=== PATIENT | female | born 1990 | race Caucasian/White ===

== ENCOUNTER 2017-07-20 11:59 | Observation (INO) | payer OTHER ==
--- NOTE | 2017-07-20 13:31 | SOAPPROG ---
SOAP Progress Note Assessment/Plan: Assessment:27 G1 at 37w5d with spotting last night, resolved today. Reassuring NST. Cervix is not dilated. Some uterine irritability and an occasional contraction. Plan: DC home with labor precautions. FU in office as scheduled in 2 days. Lexi Lambert MD, FACOG 07/20/17 13:28 Subjective: Pt had some bright red bleeding yesterday evening, which stopped, but then this morning had some brown and pink discharge. Also noticed some decreased movement this morning, so called an came in this morning. Since arrival here - has had good movement. Is feeling an occasional contraction. Objective: 37.1 119/68 86 20 O pos blood type gen - pleasant, NAD cv - RRR chest - CTAB abd - gravid, soft, NT sterile speculum - no lesions in vagina, sm amount brown mucous cervix appears long and closed SVE - closed / long/ high and posterior FHR - 130 reactive, Cat 1 toco - occasional contraction, some irritability - Time Spent With Patient Time Spent With Patient: 15min - Pending Discharge Pending Discharge Within 24 Hours: Yes Pending Discharge Within 48 Hours: Yes Pending Discharge Date: 07/21/17 Pending Discharge Time: 11:00 ICD10 Worksheet Patient Problems: Problems Problem Status Onset Vaginal bleeding during , antepartum Acute - ICD10 Problem Qualifiers (1) Vaginal bleeding during , antepartum
== END 2017-07-20 13:45 | disposition home or self-care (01) ==
LOC: FLD 11:59
PROVIDERS: ADMIT Hospitalist; ATTEND Hospitalist
DX: O36.8130 Decreased fetal movements, third trimester, not applicable or unspecified (principal); Z3A.37 37 weeks gestation of pregnancy
CPT/HCPCS: 59025; G0378

== ENCOUNTER 2017-07-22 03:23 | Inpatient (IN) | payer BC, OTHER ==
[2017-07-22] MEDS ORDERED: OLIVE OIL 118 ML BTL ONE (08:27)
[2017-07-22] MEDS ORDERED: MISOPROSTOL 200 MCG TAB ONE (08:27)
[2017-07-22] MEDS ORDERED: AMMONIA AROMATIC 1 EACH AMP IH ONE (08:27)
[2017-07-22] MEDS ORDERED: OXYTOCIN 10 UNIT/ML VIAL ONE (08:27)
[2017-07-22] MEDS ORDERED: LIDOCAINE 1% 300 MG/30 ML SDV ONE (08:27)
[2017-07-22] MEDS ORDERED: OLIVE OIL 118 ML BTL MISC PRN (08:48)
[2017-07-22] MEDS ORDERED: OXYTOCIN/NORMAL SALINE 1,000 ML IV PRN (08:48)
[2017-07-22] MEDS ORDERED: MISOPROSTOL 200 MCG TAB PR PRN (08:48)
[2017-07-22] MEDS ORDERED: LIDOCAINE 1% 300 MG/30 ML SDV SC PRN (08:48)
[2017-07-22] MEDS ORDERED: EPSOM SALT 454 GM TP PRN (08:48)
[2017-07-22] MEDS ORDERED: TERBUTALINE SULFATE 1 MG/ML VIAL IV PRN (08:48)
[2017-07-22] MEDS ORDERED: LR 1,000 ML IV PRN (08:48)
[2017-07-22] MEDS ORDERED: PHENYLEPHRINE HCL 100 MCG/ML SYR IVP PRN (08:52)
--- NOTE | 2017-07-22 08:52 | PREANESOB ---
Obstetric Pre-Anesthesia Info - General Info Proposed Procedure: 27 yo for labor mihai : 1 Para: 0 LIS: 08/04/17 Gestational Age: 38 week(s) and 1 day(s) Anesthesia Allergies/Adverse Reactions: Allergy/AdvReac Type Severity Reaction Status Date / Time amitriptyline Allergy Mild N&V, RASH Verified 07/20/17 12:23 Home Medications: Medication Instructions Recorded Calcium 500 mg PO 07/20/17 07/20/17 Visit Medications: Generic Name Dose Route Start Last Admin Trade Name Freq PRN Reason Stop Dose Admin Fentanyl 200 mcg/ Bupivacaine 100 mls @ 0 mls/hr 07/22/17 09:00 HCl 20 ml/ Sodium Chloride EP 08/01/17 08:59 CONT DARREL Protocol As Directed Discontinued Medications Generic Name Dose Route Start Last Admin Trade Name Freq PRN Reason Stop Dose Admin Ammonia (Aromatic Spirit) Confirm 07/22/17 08:27 Ammonia Aromatic Administered 07/22/17 08:28 Dose 1 each IH .STK-MED ONE Lidocaine HCl Confirm 07/22/17 08:27 Lidocaine Hcl 1% Administered 07/22/17 08:28 Dose 300 mg .ROUTE .STK-MED ONE Misoprostol Confirm 07/22/17 08:27 Cytotec Administered 07/22/17 08:28 Dose 1,000 mcg .ROUTE .STK-MED ONE [place] Oil Confirm 07/22/17 08:27 Sweet Oil Administered 07/22/17 08:28 Dose 118 ml .ROUTE .STK-MED ONE Oxytocin Confirm 07/22/17 08:27 Pitocin Administered 07/22/17 08:28 Dose 30 unit .ROUTE .STK-MED ONE - Anesthesia History Response to Local Anesthetics: Normal Anesthesia & Operative History: No Prior Problems Family Anesthesia History: Not Applicable - Vital Signs Height/Weight (Nursing): Height 5 ft 4 in Weight 81.647 kg - Focused Exam Neck exam: FROM Mallampati Score: Class 2 Mouth exam: normal dental/mouth exam Pulmonary: no respiratory distress Cardiovascular: regular rate and rhythym - Plan Consent Signed and on Chart: Yes
[2017-07-22] MEDS ORDERED: fentaNYL 100 MCG/2 ML INJ ONE (08:55)
[2017-07-22] MEDS ORDERED: BUPIVACAINE 0.25% 30 ML SDV ONE (08:55)
[2017-07-22] MEDS ORDERED: fentaNYL 200 MCG, BUPIVACAINE 0.5% 20 ML in NS 100 ML EP SCH (09:00)
[2017-07-22] MEDS ORDERED: LR 500 ML IV SCH (09:00)
[2017-07-22 09:07] LABS: PLATELET COUNT 190 10^3/uL (150-400)
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
[2017-07-22] MEDS: ONDANSETRON 4 MG/2 ML VIAL IVP PRN ×2 (13:24→16:44)
[2017-07-22] MEDS ORDERED: LR 500 ML IV PRN (16:17)
[2017-07-22] MEDS ORDERED: OXYTOCIN/NORMAL SALINE 500 ML IV SCH (16:30)
--- NOTE | 2017-07-22 20:49 | OBDEL ---
Info Type: Vaginal Presentation at Delivery: Vertex (LOP) L&D Analgesia/Anesthesia Type: Epidural GBS+: No Intrapartum Medications: Generic Name Dose Route Start Last Admin Trade Name [place] PRN Reason Stop Dose Admin Fentanyl 200 mcg/ Bupivacaine 100 mls @ 0 mls/hr 07/22/17 09:00 07/22/17 16: 27 HCl 20 ml/ Sodium Chloride EP 08/01/17 08:59 100 mls CONT DARREL Administration Protocol As Directed Oxytocin/Sodium Chloride 500 mls @ 0 mls/hr 07/22/17 16:30 07/22/17 18:34 Pitocin 30 Units/Ns (Premix) IV 01/18/18 16:29 500 mls CONT DARREL Administration Protocol Per Protocol [place] Oil 118 ml 07/22/17 08:48 07/22/17 19:40 Sweet Oil MISC 01/18/18 08:47 118 ml ONCE PRN Administration perineal massage Ondansetron HCl 4 mg 07/22/17 08:52 07/22/17 16:44 Zofran IVP 07/23/17 08:51 4 mg Q4HRS PRN Administration Nausea/Vomiting, Can't Take PO Indications for Delivery: Spontaneous Labor Vaginal Delivery - Delivery Provider Delivery Physician/CNM: Vitor Yoo - Labor and Delivery Onset of Contractions Date: 07/21/17 Onset of Contractions Time: 04:00 Onset of Contractions Type: Augmented (Pitocin during stage II) Rupture of Membranes Date: 07/22/17 Rupture of Membranes Time: 15:00 Rupture of Membranes Type: Artificial Amniotic Fluid Color: Clear Dilation Complete Date: 07/22/17 Dilation Complete Time: 17:00 Placenta Delivery Date: 07/22/17 Placenta Delivery Time: 20:30 Total Hours of Labor: 40 Non-surgical Procedures: Amniotomy Laceration: 2nd Degree, Other (Specify) (Bilateral periurethral) Repair: 3-0, 4-0 Vaginal Sponge Count Correct: Yes Vaginal Needle Count Correct: Yes Vaginal Sweep Performed: Yes EBL: 300 Delivery Events: None Cord Gases: Cord Gases Cord Blood PCO2 39.4 mmHg (37-60) 07/22/17 20:36 Cord Base Excess -5.0 mEq/L (-13.6--3.2) 07/22/17 20:36 Cord ABG pH 7.33 (7.10-7.37) 07/22/17 20:36 Cord VBG pH 7.34 (7.20-7.42) 07/22/17 20:36 - Medications Labor Augmentation/Induction Methods Used: Pitocin Labor Augmentation/Induction Indication: Contraction Strength Inadequate Operative Report - Delivery Cord Gases: Cord Gases Cord Blood PCO2 39.4 mmHg (37-60) 07/22/17 20:36 Cord Base Excess -5.0 mEq/L (-13.6--3.2) 07/22/17 20:36 Cord ABG pH 7.33 (7.10-7.37) 07/22/17 20:36 Cord VBG pH 7.34 (7.20-7.42) 07/22/17 20:36 [place] Data LIS: 08/04/17 Gestational Age: 38 week(s) and 1 day(s) Gu[place] Delivery Date: 07/22/17 Delivery Time: 20:00 Sex of Infant: Female ([place]) Score (1 Min): 8 Score (5 Min): 9 ICD10 Worksheet Patient Problems: Problems Problem Status Onset Vaginal delivery Acute Vaginal bleeding during , antepartum Acute - ICD10 Problem Qualifiers (1) Vaginal delivery
[2017-07-22] MEDS ORDERED: ACETAMINOPHEN 325 MG TAB PO PRN (20:50)
[2017-07-22] MEDS ORDERED: SIMETHICONE 80 MG TAB CHEW PO PRN (20:50)
[2017-07-22] MEDS: HYDROCODONE/APAP 5/325 TAB PO PRN (21:31)
[2017-07-23] MEDS: IBUPROFEN 600 MG TAB PO PRN ×4 (02:49→21:42)
[2017-07-23] MEDS: HYDROCODONE/APAP 5/325 TAB PO PRN ×3 (05:53→18:29)
[2017-07-23] MEDS: DOCUSATE SODIUM 100 MG CAP PO PRN (08:46)
--- NOTE | 2017-07-23 09:17 | OBPP ---
Progress Note Assessment/Plan: Assessment: [id number] s/p 2nd degree perineal laceration anemia Plan: routine PP care ambulate and hydrate support PO iron QD plan d/c home 24-48hrs 07/23/17 16:27 Subjective/ Course: 07/23/17 16:30 Pt doing well, she is ambulating and voiding without difficulty. she is working on - will plan to meet with today. She denies any pain or heavy bleeding.FOB @ BS, supportive. Objective: 07/23/17 05:55 Patient ABO/Rh O POSITIVE 07/22/17 08:45 Temp Pulse Resp BP Pulse Ox 36.5 C 80 18 106/65 95 07/23/17 04:30 07/23/17 04:30 07/23/17 04:30 07/23/17 04:30 07/23/17 04:30 Uterine Position/Fundal Height: Umbilicus -1, Midline Uterine Tone: Firm Physical Exam - Physical Exam General Appearance: WD/WN, alert, no apparent distress Neck: supple Respiratory: lungs clear Cardiac/Chest: regular rate, rhythm Abdomen: non-tender, soft Extremities: pedal edema Skin: normal color, warm/dry Neuro/Psych: alert, normal mood/affect, oriented x 3
--- NOTE | 2017-07-23 10:28 | POSTANESTH ---
Post Anesthetic Evaluation Cardiovascular Status: Normal, Stable Respiratory Status: Normal, Stable Level of Consciousness/Mental Status: Can Participate in Eval Pain Control: Adequate, Prn Tx Ordered Nausea/Vomiting Control: Adequate, Prn Tx Ordered Complications Possibly Related to Anesthesia: None Noted (No comp mihai)
[2017-07-23] MEDS: IRON POLYSAC/IRON HEME 28 MG TAB PO SCH (10:57)
[2017-07-24] MEDS: HYDROCODONE/APAP 5/325 TAB PO PRN ×2 (02:16→09:08)
[2017-07-24] MEDS: IBUPROFEN 600 MG TAB PO PRN ×2 (04:41→10:42)
--- NOTE | 2017-07-24 08:54 | OBPP ---
Progress Note Assessment/Plan: Assessment: 1) s/p PPD # 2 - pt is stable 2) Anemia - pt is asymptomatic Plan: Plan for d/c home today Instructions reviewed with pt Rx given for [place] Cont PNV, colace Rec iron and iron-rich foods Pelvic rest RTC in 4 and 6 weeks for pp visit 07/24/17 08:54 Subjective/ Course: 07/23/17 16:30 Pt doing well, she is ambulating and voiding without difficulty. she is working on - will plan to meet with today. She denies any pain or heavy bleeding.FOB @ BS, supportive. 07/24/17 08:56 Pt seen and examined. Doing well, some mild cramping and vaginal soreness- relief with [place]. Pt is OOB, vincenzo regular diet, voiding and passing flatus. No BM yet. Mod lochia. Both and pumping. Wants to go home today. Objective: 07/23/17 05:55 Patient ABO/Rh O POSITIVE 07/22/17 08:45 Temp Pulse Resp BP Pulse Ox 36.2 C 87 20 104/65 95 07/23/17 19:15 07/23/17 19:15 07/23/17 19:15 07/23/17 19:15 07/23/17 19:15 Uterine Position/Fundal Height: Umbilicus -2 Uterine Tone: Firm Physical Exam - Physical Exam Respiratory: lungs clear, normal breath sounds Cardiac/Chest: regular rate, rhythm Abdomen: normal bowel sounds, non-tender, soft, flatus (+) Extremities: non-tender, normal inspection Skin: normal color, warm/dry Neuro/Psych: alert, normal mood/affect, oriented x 3
--- NOTE | 2017-07-24 09:05 | OBGCSDC ---
General Delivery Information - General Info : 1 Para: 2 Abortions: 0 Type: Vaginal L&D Analgesia/Anesthesia Type: Epidural Admission Date: 07/22/17 Labs: Patient ABO/Rh O POSITIVE 07/22/17 08:45 Hct 35.3 % (38.0-47.0) L 07/23/17 05:55 - Hospital Course : 07/23/17 16:30 Pt doing well, she is ambulating and voiding without difficulty. she is working on - will plan to meet with today. She denies any pain or heavy bleeding.FOB @ BS, supportive. 07/24/17 08:56 Pt seen and examined. Doing well, some mild cramping and vaginal soreness- relief with [place]. Pt is OOB, vincenzo regular diet, voiding and passing flatus. No BM yet. Mod lochia. Both and pumping. Wants to go home today. Vaginal - Delivery Provider Delivery Physician/CNM: Vitor Yoo - Diagnosis Labor: Augmented (Pitocin during stage II) Rupture of Membranes Type: Artificial Amniotic Fluid Color: Clear Laceration: 2nd Degree, Other (Specify) (Bilateral periurethral) Repair: 3-0, 4-0 Delivery Events: None - Procedures Non-surgical Procedures: Amniotomy - Delivery Non-surgical Procedures: Amniotomy EBL: 300 [place] Data LIS: 08/04/17 Gestational Age: 38 week(s) and 3 day(s) Guill[place] Delivery Date: 07/22/17 Delivery Time: 19:54 Sex of Infant: Female [place] Weight (gm): 3150 g Score (1 Min): 8 Score (5 Min): 9 Discharge Information - Discharge Information Prescriptions: Hydrocodone/APAP 5/325 [Burt 5/325 (*)] 1 - 2 tab PO Q4HRS PRN #20 tab PRN Reason: Pain, Moderate Condition: Good Instruction/Follow Up: Four Weeks, Six Weeks
[2017-07-24] MEDS: IRON POLYSAC/IRON HEME 28 MG TAB PO SCH (10:42)
[2017-07-24] MEDS: DOCUSATE SODIUM 100 MG CAP PO PRN (10:42)
[2017-07-24 11:57] VITALS: BP 120/74
== END 2017-07-24 13:30 | disposition home or self-care (01) | DRG 775 ==
LOC: FLD 03:23 → OBSVTOIN 03:23 → FOB 22:45
PROVIDERS: ADMIT Advanced Practice Midwife; ATTEND Obstetrics & Gynecology
PROC: 0KQM0ZZ Repair Perineum Muscle, Open Approach (ICD-10-PCS; principal; 2017-07-22)
PROC: 10E0XZZ Delivery of Products of Conception, External Approach (ICD-10-PCS; principal; 2017-07-22)
DX: O90.81 Anemia of the puerperium (principal); O70.1 Second degree perineal laceration during delivery; Z3A.38 38 weeks gestation of pregnancy; Z37.0 Single live birth
CPT/HCPCS: J2405; J2590; J3010